=== PATIENT | female | born 1965 | race Caucasian/White ===

== ENCOUNTER → 2020-06-17 | Outpatient (CLI) | payer OTHER ==
[~2020-06-17] MED LIST: IOHEXOL 350 MG/ML 100ML IJ ONE
[2020-06-17 15:00] VITALS: BP 149/97
--- NOTE | 2020-06-17 15:00 | NUR ---
PT ARRIVED TO [facility] FOR [facility]A CHEST WITH IV CONTRAST. PT AMBULATORY, A/O X 4.
--- NOTE | 2020-06-17 15:16 | NUR ---
IV insertion IV access obtained, via clean sterile technique by inserting 20 gauge catheter at RAC after 1 attempt. IV secured properly. No trauma to site. Patient tolerated procedure well.
--- NOTE | 2020-06-17 15:30 | NUR ---
PATIENT AMBULATED TO AND FROM CT.
--- NOTE | 2020-06-17 15:35 | NUR ---
IV removal IV DC'd with sterile technique, catheter fully intact. Pressure dressing applied to site. Patient tolerated procedure well. Discharged with aftercare instructions per MD. PT EDUCATED ON INCREASING WATER INTAKE AFTER CT, PT VERBALIZED UNDERSTANDING.
[2020-06-17 15:47] VITALS: BP 137/87
--- NOTE | 2020-06-17 15:47 | NUR ---
Discharge Instructions See e-MAR for any mediations given with this visit. Patient education given on disease process. Patient verbalized understanding. Patient discharged in stable condition with after care instructions and follow up appointment [facility].
== END | disposition home or self-care (01) ==
LOC: Rad HDHVI 14:55
PROVIDERS: ATTEND Internal Medicine Cardiovascular Disease
DX: K76.0 Fatty (change of) liver, not elsewhere classified (principal); K80.20 Calculus of gallbladder without cholecystitis without obstruction; J98.8 Other specified respiratory disorders; J98.4 Other disorders of lung
CPT/HCPCS: 71275; G0463; Q9967